=== PATIENT | male | born 1985 | race Caucasian/White ===

== ENCOUNTER 2017-05-01 19:01 | Emergency (ER) | payer OTHER ==
[~2017-05-01] VITALS: Ht 180.3 cm; Wt 61.2 kg
[~2017-05-01 19:01] MED LIST: CYCLOBENZAPRINE10 MG PO; IBUPROFEN800 MG PO; IMITREX50 MG PO; MELOXICAM7.5 MG PO; NAPROXEN375 MG PO; RANITIDINE HCL150 MG PO; TYLENOL WITH C1 EACH PO
== END 2017-05-01 19:50 | disposition left against medical advice (07) ==
LOC: ED 19:01
DX: Z53.21 Procedure and treatment not carried out due to patient leaving prior to being seen by health care provider (principal)

== ENCOUNTER 2017-05-04 23:53 | Emergency (ER) | payer OTHER ==
[~2017-05-04] VITALS: Ht 180.3 cm; Wt 61.2 kg
[2017-05-05] MEDS ORDERED: PENICILLIN V P500 MG PO (00:04)
[2017-05-05] MEDS ORDERED: ACETAMINOPHEN500 MG PO (00:04)
== END 2017-05-05 00:28 | disposition home or self-care (01) ==
LOC: ED 23:53
DX: K08.89 Other specified disorders of teeth and supporting structures (principal); F17.200 Nicotine dependence, unspecified, uncomplicated; Z79.2 Long term (current) use of antibiotics
CPT/HCPCS: 99283

== ENCOUNTER 2018-11-26 20:29 | Emergency (ER) | payer OTHER ==
[~2018-11-26] VITALS: Ht 180.3 cm; Wt 61.2 kg
--- OUTSIDE RECORDS SUMMARY | ~2018-11-26 | XMS | Clinical Summary ---
Demographics + + + | Address | [address] | | | [place] [address] | + + + | Home Phone | | + + + | Preferred Language | Unknown | + + + | Marital Status | Single | + + + | Restorationist Affiliation | Unknown | + + + | Race | Unknown | + + + | Ethnic Group | Unknown | + + + Author + + + | Author | [facility] | | | and Jerrellana | + + + | Organization | [facility] | | | and [place] | + + + | Address | Unknown | + + + | Phone | Unavailable | + + + Support + + +---------+ + | Name | Relationship | Address | Phone | + + +---------+ + | Sky Streeter | ECON | Unknown | | + + +---------+ + Care Team Providers + +------+ + | Care Laborer Electroplating Name | Role | Phone | + +------+ + PP | Unavailable | + +------+ + Allergies Not on File Medications Not on file Active Problems Not on file Social History + +-------+ +--------+------+ | Tobacco Use | Types | Packs/Day | Years | Date | | | | | Used | | + +-------+ +--------+------+ | Never Assessed | | | | | + +-------+ +--------+------+ + + + | Sex Assigned at | Date Recorded | | | | + + + | Not on file | | + + + + + + + | Job Start Date | Occupation | Industry | + + + + | Not on file | Not on file | Not on file | + + + + + + + + | Travel History | Travel Start | Travel End | + + + + + + | No recent travel history available. | + + Plan of Treatment + + + + + | Health Maintenance | Due Date | Last Done | Comments | + + + + + | Vaccine: | | | | | Dtap/Tdap/Td (1 - | 6 | | | | Tdap) | | | | + + + + + | Vaccine: Influenza | | | | | (Season Ended) | 9 | | | + + + + + Results Not on filefrom Last 3 Months"
--- OUTSIDE RECORDS SUMMARY | ~2018-11-26 | XMS | Clinical Summary ---
Demographics + + + | Address | [address] | | | [place] [address] | + + + | Home Phone | | + + + | Preferred Language | Unknown | + + + | Marital Status | Single | + + + | Jehovah'S Witness Affiliation | Unknown | + + + | Race | Unknown | + + + | Ethnic Group | Unknown | + + + Author + + + | Author | [facility] | | | and Jerrellana | + + + | Organization | [facility] | | | and Jerrellana | [...] Team Providers + +------+ + | Care Director Of Housing Name | Role | Phone | + [...]
[~2018-11-26 20:29] MED LIST changes: +ACETAMINOPHEN500 MG PO; +NAPROXEN500 MG PO; +PENICILLIN V P500 MG PO
--- OUTSIDE RECORDS SUMMARY | 2018-11-26 20:32 | XMS ---
PreManage Notification: YESENIA PEDERSEN Security Control Engineer Events No recent Security Events currently on file CRITERIA MET - Group Notification CARE PROVIDERS Olga Mason Current PAC PHONE: Unknown Coral has no Care Guidelines for this patient. EIman VISIT COUNT (12 MO.) 2 [facility] TOTAL 2 NOTE: Visits indicate total known visits. ED/UCC VISIT TRACKING (12 MO.) 11/26/2018 20:29 [facility] [place] TYPE: Emergency COMPLAINT: - R FOOT PAIN 06/01/2018 17:56 [facility] TYPE: Emergency COMPLAINT: - R SHOULDER/BACK PAIN DIAGNOSES: - Migraine, unspecified, not intractable, without status migrainosus - Low back pain - Unspecified fall, initial encounter - Gastro-esophageal reflux disease without esophagitis - Strain of unspecified muscle, fascia and tendon at shoulder and upper arm level, right arm, initial encounter - Nicotine dependence, unspecified, uncomplicated INPATIENT VISIT TRACKING (12 MO.) No inpatient visits to display in this time frame [id number]
[2018-11-26] MEDS ORDERED: POLYMYXIN B-TMP10 ML OD (20:44)
[2018-11-26] MEDS ORDERED: BACTRIM DS TAB1 EACH PO (20:44)
[2018-11-26] MEDS ORDERED: KEFLEX500 MG PO (21:41)
== END 2018-11-26 21:53 | disposition home or self-care (01) ==
LOC: ED 20:29
DX: L08.9 Local infection of the skin and subcutaneous tissue, unspecified (principal); F17.200 Nicotine dependence, unspecified, uncomplicated; K21.9 Gastro-esophageal reflux disease without esophagitis
CPT/HCPCS: 73630; 99283

== ENCOUNTER 2021-05-17 10:26 | Emergency (ER) | payer OTHER ==
[~2021-05-17] VITALS: Ht 180.3 cm; Wt 61.2 kg
[~2021-05-17 10:26] MED LIST changes: +BACTRIM DS TAB1 EACH PO; +KEFLEX500 MG PO; +POLYMYXIN B-TMP10 ML OD
--- OUTSIDE RECORDS SUMMARY | 2021-05-17 10:30 | XMS ---
PreManage Notification: YESENIA PEDERSEN Security Metal Polisher Events No recent Security Events currently on file CRITERIA MET - Group Notification CARE PROVIDERS DIAN VASQUEZ [facility] 11/27/2018-Current PHONE: [phone] Coral has no Care Guidelines for this patient. EIman VISIT COUNT (12 MO.) 1 [facility] TOTAL 1 NOTE: Visits indicate total known visits. ED/UCC VISIT TRACKING (12 MO.) 05/17/2021 10:27 [facility] [place] TYPE: Emergency COMPLAINT: - L THUMB LACERATION/INJURY INPATIENT VISIT TRACKING (12 MO.) No inpatient visits to display in this time frame [id number]
== END 2021-05-17 11:52 | disposition home or self-care (01) ==
LOC: ED 10:26
DX: S61.012A Laceration without foreign body of left thumb without damage to nail, initial encounter (principal); Z23 Encounter for immunization; W45.8XXA Other foreign body or object entering through skin, initial encounter; G43.909 Migraine, unspecified, not intractable, without status migrainosus; F17.200 Nicotine dependence, unspecified, uncomplicated
CPT/HCPCS: 12002; 90471; 90715; 99282-25

== ENCOUNTER 2023-05-05 19:23 | Emergency (ER) | payer OTHER ==
[~2023-05-05] VITALS: Ht 180.3 cm; Wt 65.7 kg
[~2023-05-05 19:23] MED LIST changes: +FAMCICLOVIR500 MG PO
--- OUTSIDE RECORDS SUMMARY | 2023-05-05 19:32 | XMS ---
PreManage Notification: YESENIA PEDERSEN Security Plasma Processing Technician Events No recent Security Events currently on file CRITERIA MET - Group Notification CARE PROVIDERS DIAN VASQUEZ [facility] 05/18/2021-Current PHONE: Unknown Coral has no Care Guidelines for this patient. Gunjan VISIT COUNT (12 MO.) 2 MONICO [facility]or TOTAL 2 NOTE: Visits indicate total known visits. ED/UCC VISIT TRACKING (12 MO.) 05/05/2023 19:24 [facility] [place] TYPE: Emergency COMPLAINT: - R FINGER PAIN 11/01/2022 10:40 [facility] TYPE: Emergency COMPLAINT: - SKIN PROBLEM DIAGNOSES: - Nicotine dependence, unspecified, uncomplicated - Rash and other nonspecific skin eruption - Zoster without complications INPATIENT VISIT TRACKING (12 MO.) No inpatient visits to display in this time frame [id number]
[2023-05-05 20:20] VITALS: BP 152/95
== END 2023-05-05 20:20 | disposition home or self-care (01) ==
LOC: ED 19:23
DX: S63.612A Unspecified sprain of right middle finger, initial encounter (principal); W22.8XXA Striking against or struck by other objects, initial encounter; F17.200 Nicotine dependence, unspecified, uncomplicated
CPT/HCPCS: 73130; 99283-25; A9270

== ENCOUNTER 2023-05-14 10:11 | Emergency (ER) | payer OTHER ==
[~2023-05-14] VITALS: Ht 180.3 cm; Wt 60.8 kg
--- OUTSIDE RECORDS SUMMARY | 2023-05-14 10:19 | XMS ---
PreManage Notification: YESENIA PEDERSEN Security Concrete Batcher Events No recent Security Events currently on file CRITERIA MET - Group Notification - [facility] - 2 Visits in 30 Days CARE PROVIDERS DIAN VASQUEZ [facility] 05/18/2021-Current PHONE: Unknown Coral has no Care Guidelines for this patient. Gunjan VISIT COUNT (12 MO.) 3 [facility] TOTAL 3 NOTE: Visits indicate total known visits. ED/C VISIT TRACKING (12 MO.) 05/14/2023 10:12 [facility] TYPE: Emergency COMPLAINT: - COLD SYMPTOMS 05/05/2023 19:24 [facility] TYPE: Emergency COMPLAINT: - R FINGER INJURY DIAGNOSES: - Nicotine dependence, unspecified, uncomplicated - Pain in right finger(s) - Striking against or struck by other objects, initial encounter - Unspecified sprain of right middle finger, initial encounter 11/01/2022 10:40 [facility] [place] TYPE: Emergency COMPLAINT: - SKIN PROBLEM DIAGNOSES: - Nicotine dependence, unspecified, uncomplicated - Rash and other nonspecific skin eruption - Zoster without complications INPATIENT VISIT TRACKING (12 MO.) No inpatient visits to display in this time frame [id number]
[2023-05-14 11:24] LABS: INFLUENZA B NAA NEGATIVE (NEGATIVE); RESPIRATORY SYNCYTIAL VIR NAA NEGATIVE (NEGATIVE)
[2023-05-14 11:43] VITALS: BP 124/82
== END 2023-05-14 11:45 | disposition home or self-care (01) ==
LOC: ED 10:11
PROVIDERS: Emergency Medicine
DX: J10.1 Influenza due to other identified influenza virus with other respiratory manifestations (principal); F17.200 Nicotine dependence, unspecified, uncomplicated; Z20.822 Contact with and (suspected) exposure to COVID-19
CPT/HCPCS: 87502; A9270; U0002

== ENCOUNTER 2023-07-15 13:24 | Emergency (ER) | payer OTHER ==
[~2023-07-15] VITALS: Ht 180.3 cm; Wt 60.2 kg
--- OUTSIDE RECORDS SUMMARY | 2023-07-15 13:33 | XMS ---
PreManage Notification: YESENIA PEDERSEN Security Hospice Social Worker Events No recent Security Events currently on file CRITERIA MET - Group Notification CARE PROVIDERS DIAN VASQUEZ [facility] 05/18/2021-Current PHONE: Unknown MIKEL PARKER Current PHONE: Unknown Coral has no Care Guidelines for this patient. Gunjan VISIT COUNT (12 MO.) Barry Amor TOTAL 4 NOTE: Visits indicate total known visits. ED/UCC VISIT TRACKING (12 MO.) 07/15/2023 13:24 [facility] [place] TYPE: Emergency COMPLAINT: - GROIN PROBLEM 05/14/2023 10:12 [facility] [place] TYPE: Emergency COMPLAINT: - COLD SYMPTOMS DIAGNOSES: - Contact with and (suspected) exposure to COVID-19 - Cough, unspecified - Influenza due to other identified influenza virus with other respiratory manifestations - Nicotine dependence, unspecified, uncomplicated 05/05/2023 19:24 [facility] [place] TYPE: Emergency [...] visits to display in this time frame [id number]
[2023-07-15] MEDS ORDERED: BACTRIM DS TAB1 EACH PO (15:48)
[2023-07-15 16:02] VITALS: BP 111/70
== END 2023-07-15 16:03 | disposition home or self-care (01) ==
LOC: ED 13:24
DX: N45.1 Epididymitis (principal); N43.3 Hydrocele, unspecified; F17.200 Nicotine dependence, unspecified, uncomplicated
CPT/HCPCS: 76870; 99284-25; A9270

== ENCOUNTER 2024-03-30 09:33 | Emergency (ER) | payer OTHER ==
[~2024-03-30] VITALS: Ht 180.3 cm; Wt 65.4 kg
--- OUTSIDE RECORDS SUMMARY | 2024-03-30 09:40 | XMS ---
PreManage Notification: YESENIA PEDERSEN Security Metal Stamping Machine Operator Events No recent Security Events currently on file CRITERIA MET - Group Notification CARE PROVIDERS DIAN VASQUEZ [facility] 05/18/2021-Current PHONE: Unknown MIKEL PARKER Current PHONE: [phone] Coral has no Care Guidelines for this patient. Gunjan VISIT COUNT (12 MO.) Akin Amor TOTAL 7 NOTE: Visits indicate total known visits. ED/UCC VISIT TRACKING (12 MO.) 03/30/2024 09:34 [facility] [place] TYPE: Emergency COMPLAINT: - FOOT PAIN 01/30/2024 21:16 [facility] [place] TYPE: Emergency COMPLAINT: - POSS SPIDER BITE DIAGNOSES: - Cellulitis of left lower limb - Nicotine dependence, unspecified, uncomplicated - Other long term care social worker (current) drug therapy 09/12/2023 16:13 [facility] [place] TYPE: Emergency COMPLAINT: - R EYE SWOLLEN 09/12/2023 14:20 [facility] [place] TYPE: Emergency COMPLAINT: - R EYE SWOLLEN 07/15/2023 13:24 [facility] [place] TYPE: Emergency COMPLAINT: - GROIN PROBLEM DIAGNOSES: - Epididymitis - Hydrocele, unspecified - Left testicular pain - Nicotine dependence, unspecified, uncomplicated 05/14/2023 10:[address] [facility] [place] TYPE: Emergency COMPLAINT: - COLD SYMPTOMS DIAGNOSES: - Contact with and (suspected) exposure to COVID-19 - Cough, unspecified - Influenza due to other identified influenza virus with other respiratory manifestations - Nicotine dependence, unspecified, uncomplicated 05/05/2023 19:[address] [facility] [place] TYPE: Emergency COMPLAINT: - R FINGER INJURY DIAGNOSES: - Nicotine dependence, unspecified, uncomplicated - Pain in right finger(s) - Striking against or struck by other objects, initial encounter - Unspecified sprain of right middle finger, initial encounter INPATIENT VISIT TRACKING (12 MO.) No inpatient visits to display in this time frame [id number]
[2024-03-30] MEDS ORDERED: ACETAMINOPHEN 500 MG TAB PO ONE (10:00)
[2024-03-30] MEDS ORDERED: CEPHALEXIN MONOHYDRATE 500 MG CAP PO ONE (10:00)
[2024-03-30] MEDS ORDERED: CEPHALEXIN500 M1 PO (10:06)
[2024-03-30 10:32] VITALS: BP 139/87
== END 2024-03-30 10:30 | disposition home or self-care (01) ==
LOC: ED 09:33
DX: L03.126 Acute lymphangitis of left lower limb (principal); F17.200 Nicotine dependence, unspecified, uncomplicated
CPT/HCPCS: 99283; A9270

== ENCOUNTER 2024-09-07 17:58 | Emergency (ER) | payer OTHER ==
[~2024-09-07] VITALS: Ht 180.3 cm; Wt 66.2 kg
[~2024-09-07 17:58] MED LIST changes: +CEPHALEXIN500 M1 PO
--- OUTSIDE RECORDS SUMMARY | 2024-09-07 18:05 | XMS ---
PreManage Notification: YESENIA PEDERSEN Security Pump Installer Events No recent Security Events currently on file CRITERIA MET - Group Notification CARE PROVIDERS DIAN VASQUEZ [facility] 05/18/2021-Current PHONE: Unknown MIKEL PARKER Current PHONE: [phone] Coral has no Care Guidelines for this patient. Gunjan VISIT COUNT (12 MO.) Dandy Amor TOTAL 6 NOTE: Visits indicate total known visits. ED/UCC VISIT TRACKING (12 MO.) 09/07/2024 17:58 [facility] [place] TYPE: Emergency COMPLAINT: - ITCHING IN THE GROIN 04/18/2024 15:42 [facility] [place] TYPE: Emergency COMPLAINT: - WOUND CHECK 03/30/2024 09:34 [facility] [place] TYPE: Emergency COMPLAINT: - FOOT PAIN DIAGNOSES: - Acute lymphangitis of left lower limb - Nicotine dependence, unspecified, uncomplicated - Pain in left foot 01/30/2024 21:16 [facility] [place] TYPE: Emergency COMPLAINT: - POSS SPIDER BITE DIAGNOSES: - Cellulitis of left lower limb - Nicotine dependence, unspecified, uncomplicated - Other detention (current) drug therapy 09/12/2023 16:13 [facility] [place] TYPE: Emergency COMPLAINT: - R EYE SWOLLEN 09/12/2023 14:20 [facility] [place] TYPE: Emergency COMPLAINT: - R EYE SWOLLEN INPATIENT VISIT TRACKING (12 MO.) No inpatient visits to display in this time frame [id number]
[2024-09-07] MEDS ORDERED: MUPIROCIN22 GM TOP (19:37)
[2024-09-07] MEDS ORDERED: MUPIROCIN 22 GM TUBE TOP ONE (19:45)
[2024-09-07] MEDS ORDERED: DOXYCYCLINE HYCLATE 100 MG HOME.PACK PO ONE (19:45)
[2024-09-07] MEDS ORDERED: MUPIROCIN 22 GM TUBE ONE (19:52)
[2024-09-07 20:07] VITALS: BP 127/87
[2024-09-10 11:44] LABS: HIV 1,2 COMBO ANTIGEN/ANTIBODY Negative (Negative)
[2024-09-11 18:17] LABS: T.PALLIDUM AB,IGG (FTA-ABS) Non Reactive (Non Reactive)
== END 2024-09-07 20:10 | disposition home or self-care (01) ==
LOC: ED 17:58
PROVIDERS: Family Medicine
DX: N48.9 Disorder of penis, unspecified (principal); G43.909 Migraine, unspecified, not intractable, without status migrainosus; M41.9 Scoliosis, unspecified; F17.200 Nicotine dependence, unspecified, uncomplicated
CPT/HCPCS: 36415; 86780; 99282; A9270

== ENCOUNTER 2024-10-06 11:19 | Emergency (ER) | payer OTHER ==
[~2024-10-06] VITALS: Ht 180.3 cm; Wt 74.0 kg
[~2024-10-06 11:19] MED LIST changes: +MUPIROCIN22 GM TOP
--- OUTSIDE RECORDS SUMMARY | 2024-10-06 11:26 | XMS ---
PreManage Notification: YESENIA PEDERSEN Security Phytopathologist Events No recent Security Events currently on file CRITERIA MET - Group Notification - [facility] - 2 Visits in 30 Days CARE PROVIDERS DIAN VASQUEZ [facility] 05/18/2021-Current PHONE: Unknown MIKEL PARKER Current PHONE: [phone] Coral has no Care Guidelines for this patient. Gunjan VISIT COUNT (12 MO.) [address] [place] [address] TOTAL 5 NOTE: Visits indicate total known visits. ED/UCC VISIT TRACKING (12 MO.) 10/06/2024 11:20 [facility] [place] TYPE: Emergency COMPLAINT: - BACK PAIN 09/07/2024 17:58 [facility] [place] TYPE: Emergency COMPLAINT: - ITCHING IN THE GROIN DIAGNOSES: - Disorder of penis, unspecified - Migraine, unspecified, not intractable, without status migrainosus - Nicotine dependence, unspecified, uncomplicated - Scoliosis, unspecified 04/18/2024 15:42 [facility] [place] TYPE: Emergency COMPLAINT: - WOUND CHECK 03/30/2024 09:34 [facility] [place] [facility] [place] TYPE: Emergency COMPLAINT: - FOOT PAIN DIAGNOSES: - Acute lymphangitis of left lower limb - Nicotine dependence, unspecified, uncomplicated - Pain in left foot 01/30/2024 21:16 [facility] [place] TYPE: Emergency COMPLAINT: - POSS SPIDER BITE DIAGNOSES: - Cellulitis of left lower limb - Nicotine dependence, unspecified, uncomplicated - Other local company intermodal truck driver (current) drug therapy INPATIENT VISIT TRACKING (12 MO.) No inpatient visits to display in this time frame [id number]
[2024-10-06 11:45] VITALS: BP 139/81
[2024-10-06] MEDS ORDERED: IBUPROFEN 600 MG TAB PO ONE (11:45)
[2024-10-06] MEDS ORDERED: CYCLOBENZAPRINE HCL 10 MG TAB PO ONE (11:45)
== END 2024-10-06 11:45 | disposition home or self-care (01) ==
LOC: ED 11:19
DX: M54.50 Low back pain, unspecified (principal); K21.9 Gastro-esophageal reflux disease without esophagitis; G43.909 Migraine, unspecified, not intractable, without status migrainosus; F17.200 Nicotine dependence, unspecified, uncomplicated
CPT/HCPCS: 99283; A9270